=== PATIENT | female | born 1955 | race Two or more races ===

== ENCOUNTER 2020-09-20 12:07 | Emergency (ER) | payer MEDICARE ==
[~2020-09-20] VITALS: Ht 152.4 cm; Wt 55.6 kg
--- NOTE | 2020-09-20 12:57 | NUR ---
Confirmed with pt that she is comfortable communicating in [place]. Pt states she has abd pain and points central epigastric. Pt describes pain as "burning." States she gets the pain every night at 9pm when she lays down to sleep. States she does not eat dinner, denies eating food prior to laying down for bed. Pt states she walks every day and "1 time about 1 month ago" she felt R upper chest pain, but "I made it to the end [of her walk.]" Pt resting in bed, connected to all monitors. JEANETTEN. Awaiting orders.
[2020-09-20] MEDS ORDERED: MAALOX/HYOSCYAMINE/LIDOCAINE 45 ML BTL PO ONE (13:00)
[2020-09-20] MEDS ORDERED: MAALOX/HYOSCYAMINE/LIDOCAINE 45 ML BTL ONE (13:16)
[2020-09-20 13:28] LABS: BASOPHILS % (AUTO) 1 % (0-1); EOSINOPHILS % (AUTO) 2 % (1-7); LYMPHOCYTES % (AUTO) 34 % (22-44); MEAN CORPUSCULAR HEMOGLOBIN 31.8 pg (27.0-34.8); MEAN CORPUSCULAR HGB CONC 33.5 g/dL (32.4-35.8); MEAN PLATELET VOLUME 6.9 fL (7.4-10.4); MONOCYTES % (AUTO) 5 % (2-9); NEUTROPHILS % (AUTO) 58 % (42-75); PLATELET COUNT 313 x10^3/uL (130-400); RED BLOOD COUNT 4.22 x10^6/uL (3.82-5.3); RED CELL DISTRIBUTION WIDTH 12.9 % (9.6-15.2)
[2020-09-20 13:29] LABS: MD NO
[2020-09-20 13:39] LABS: ALANINE AMINOTRANSFERASE 17 U/L (12-78); ALBUMIN 3.2 g/dL (3.4-5.0); ANION GAP 6 mmol/L (5-15); CHLORIDE 109 mmol/L (98-107); CREATININE 0.66 mg/dL (0.55-1.02)
[2020-09-20 13:44] LABS: ALKALINE PHOSPHATASE 86 U/L (45-117); BILIRUBIN,TOTAL 0.3 mg/dL (0.2-1.0); TOTAL PROTEIN 6.7 g/dL (6.4-8.2); TROPONIN I < 0.015 ng/mL (0.000-0.045)
[2020-09-20 14:57] VITALS: BP 122/58
== END 2020-09-20 15:02 | disposition home or self-care (01) ==
LOC: ED 14:30
DX: K21.9 Gastro-esophageal reflux disease without esophagitis (principal); R07.89 Other chest pain; R94.31 Abnormal electrocardiogram [ECG] [EKG]
CPT/HCPCS: 36415; 71045; 76700; 80053; 83690; 84484; 85025; 93005; 99285